=== PATIENT | female | born 1995 | race Caucasian/White ===

== ENCOUNTER 2018-10-24 16:33 | Emergency (ER) | payer SELFPAY ==
[~2018-10-24] VITALS: Ht 157.5 cm; Wt 63.6 kg
[2018-10-24 16:49] VITALS: BP 114/62
== END 2018-10-24 17:00 | disposition left against medical advice (07) ==
LOC: EMS 16:34
DX: R10.13 Epigastric pain (principal); Z53.21 Procedure and treatment not carried out due to patient leaving prior to being seen by health care provider